=== PATIENT | male | born 1995 | race Caucasian/White ===

== ENCOUNTER 2017-10-25 19:20 | Emergency (ER) | payer SELFPAY ==
[2017-10-25 19:57] VITALS: BP 117/54
[2017-10-25] MEDS ORDERED: TYLENOL ONE (20:00)
[2017-10-25] MEDS ORDERED: TYLENOL PO ONE (20:01)
[2017-10-25] MEDS ORDERED: ZOFRAN ODT PO ONE (23:09)
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
== END 2017-10-25 23:26 | disposition home or self-care (01) ==
LOC: ED 19:20
DX: R51 Headache (principal); R11.2 Nausea with vomiting, unspecified; F12.10 Cannabis abuse, uncomplicated; Z87.891 Personal history of nicotine dependence
CPT/HCPCS: 99282; Q0162